=== PATIENT | female | born 1990 | race Caucasian/White ===

== ENCOUNTER 2018-05-13 03:04 | Emergency (ER) | payer BC ==
[2018-05-13 03:08] VITALS: BP 132/94
--- NOTE | 2018-05-13 03:34 | ER Report ---
History and Physical Time Seen By MD: 03:07 Hx. of Stated Complaint: patient states that she has been drinking and fell when she got home at 0214 HPI/ROS CHIEF COMPLAINT: chin laceration HISTORY OF PRESENT ILLNESS: This is a 28 year old female. She fell at home and cut her chin. She has been drinking. She denies any loss of consciousness. She has no headache. Last tetanus was about 4 years ago. Allergies: Coded Allergies: No Known Drug Allergies (Unverified , 05/13/18) Home Meds Active Scripts Cephalexin Monohydrate (CEPHALEXIN) 500 Mg Cap, 500 MG PO Q6H, #20 CAP 0 Refills Prov:LINOMICKIE DEXTER MD 05/13/18 Reviewed Nurses Notes: Yes Hx Substance Use Disorder: No Hx Alcohol Use: Yes Constitutional Vital Sign - Last 24 Hours 05/13/18 03:08 Temp 98.2 Pulse 105 Resp 17 B/P (MAP) 132/94 Pulse Ox 96 O2 Delivery Room Air Physical Exam General: Alert, oriented. No acute distress. Skin: 3cm laceration of the chin, just to the left of medial. Eyes: Pupils are round, equal and reactive, movements intact. ENT: No other injuries noted. Normal oral mucosa. Neuro: Alert and oriented x3, no deficits. Medical Decision Making ED Course/Re-evaluation ED Course Procedure: Laceration Repair Verbal consent from patient after discussing repair options, risks and benefits. Wound cleaned extensively with Hibiclens and saline. Anesthesia: Local 1% lidocaine with epinephrine and 0.5% bupivacaine with epinephrine. Location: Chin just to the lateral left of midline. Length: About 3 cm. Character: Deep into the subcutaneous tissue. Wound repair: 3 interrupted 4-0 Vicryl sutures followed by a running subcuticular 5-0 Prolene stitch. The wound repair was simple and performed by myself. Wound care instructions discussed. Sutures need to be removed in 57 days. Cephalexin 500mg four times a day for 5 days. Decision to Disposition Date: May 13, 2018 Decision to Disposition Time: 04:08 Depart Departure Latest Vital Signs Vital Signs Date Time Temp Pulse Resp B/P (MAP) Pulse Ox O2 Delivery O2 Flow Rate FiO2 05/13/18 03:08 98.2 105 17 132/94 96 Room Air Impression: Primary Impression: Laceration of chin Condition: Improved Disposition: HOME OR SELF-CARE New Scripts Cephalexin Monohydrate (CEPHALEXIN) 500 Mg Cap 500 MG PO Q6H, #20 CAP 0 Refills Prov: MICKIE HUYNH MD 05/13/18 Patient Instructions: Facial Laceration (ED) Additional Instructions: Wound Care: Wash the wound once a day with soap and water. Dry the wound and apply a small amount of antibiotic ointment with a clean dressing. If the dressing becomes wet or dirty, repeat cleaning and dressing as above. No soaking the wound; no swimming. Stitches need to be removed in 5-7 days. Pain Control: Use Tylenol or ibuprofen for pain. Using and ice pack can help reduce swelling. Antibiotic: Cephalexin 500mg 4 times a day for 5 days. Problem Qualifiers Primary Impression: Laceration of chin Encounter type: initial encounter Qualified Codes: S01.81XA - Laceration without foreign body of other part of head, initial encounter MICKIE HUYNH MD May 13, 2018 03:34
[2018-05-13] MEDS ORDERED: CEPH500C24 PO (04:09)
[2018-05-13] MEDS ORDERED: CEPHALEXIN 500 MG CAP TH 2 CAP/BOTTLE PO ONE (04:10)
== END 2018-05-13 04:17 | disposition home or self-care (01) ==
LOC: ER 03:56
DX: S01.81XA Laceration without foreign body of other part of head, initial encounter (principal)
CPT/HCPCS: 99283

== ENCOUNTER 2018-05-31 18:18 | Emergency (ER) | payer BC ==
[~2018-05-31 18:18] MED LIST: CEPH500C24 PO
[2018-05-31 18:23] VITALS: BP 121/82
--- NOTE | 2018-05-31 18:29 | ER Report ---
History and Physical Time Seen By MD: 18:26 Hx. of Stated Complaint: RESIDENTIAL CLEARANCE HPI/ROS CHIEF COMPLAINT: Alf clearance HISTORY OF PRESENT ILLNESS: This is a 28-year-old female who presents to the emergency department in the custody of the [employer] [employer]. The patient states she had several cocktails this afternoon, last drink was about 3:30. States then she "made a bad decision to drive" and was picked up by the [facility]. Upon arrival the patient has no complaints, no chest pain or shortness of breath. No nausea or vomiting. No fevers or chills. Patient is alert and oriented, interacting well, she does understand why she is here. REVIEW OF SYSTEMS: Constitutional: No fever, no chills. Eyes: No discharge. ENT: No sore throat. Cardiovascular: No chest pain, no palpitations. Respiratory: No cough, no shortness of breath. Gastrointestinal: No abdominal pain, no vomiting. Genitourinary: No hematuria. Musculoskeletal: No back pain. Skin: No rashes. Neurological: No headache. Allergies: Coded Allergies: No Known Drug Allergies (Unverified , 05/31/18) Home Meds Discontinued Scripts Cephalexin Monohydrate (CEPHALEXIN) 500 Mg Cap, 500 MG PO Q6H, #20 CAP 0 Refills Prov:MICKIE HUYNH MD 05/13/18 Past Medical/Surgical History The patient has a past medical and surgical history of depression. Reviewed Nurses Notes: Yes Hx Substance Use Disorder: No Hx Alcohol Use: Yes Constitutional Vital Sign - Last 24 Hours 05/31/18 18:23 Temp 97.9 Pulse 77 Resp 16 B/P (MAP) 121/82 Pulse Ox 97 O2 Delivery Room Air Physical Exam General Appearance: The patient is alert, has no immediate need for airway protection and no signs of toxicity, odor of EtOH. Eyes: Pupils equal and round no pallor or injection. EOMs intact. ENT, Mouth: Mucous membranes are moist. Respiratory: There are no retractions, lungs are clear to auscultation. Cardiovascular: Regular rate and rhythm, no murmurs, clicks or rubs. Gastrointestinal: Abdomen is soft and non tender, no masses, bowel sounds normal. Neurological: Alert and oriented 4. Moving all extremities. Following all commands. No focal neuro deficits. Skin: Warm and dry, no rashes. Musculoskeletal: Neck is supple non tender. Extremities are nontender, nonswollen and have full range of motion. DIFFERENTIAL DIAGNOSIS: After history and physical exam differential diagnosis was considered for alcohol intoxication. Medical Decision Making ED Course/Re-evaluation ED Course The patient was admitted to a room. A history and physical were obtained. Differential diagnoses were considered. After examination the patient was determined the patient would be medically clear to proceed to longterm at this time. The patient had no other complaints, no questions or concerns. Patient was discharged in the company of the [employer]. Decision to Disposition Date: May 31, 2018 Decision to Disposition Time: 18:33 Depart Departure Latest Vital Signs Vital Signs Date Time Temp Pulse Resp B/P (MAP) Pulse Ox O2 Delivery O2 Flow Rate FiO2 05/31/18 18:23 97.9 77 16 121/82 97 Room Air Impression: Primary Impression: Alcohol intoxication Condition: Improved Disposition: [facility] TO RESIDENTIAL/CORRECTIONAL F New Scripts No Active Prescriptions or Reported Meds Patient Instructions: Alcohol Intoxication (DC) Additional Instructions: Be sure to drink plenty of water. Get plenty of rest. Follow up with your primary care provider for follow up. Return to the ED for any other concerns or worsening symptoms. Problem Qualifiers Primary Impression: Alcohol intoxication Complication of substance-induced condition: uncomplicated Qualified Codes: F10.920 - Alcohol use, unspecified with intoxication, uncomplicated BAYRON MICHAELP-BC May 31, 2018 18:29
== END 2018-05-31 18:45 ==
LOC: ER 18:40
DX: F10.920 Alcohol use, unspecified with intoxication, uncomplicated (principal)
CPT/HCPCS: 99281